=== PATIENT | female | born 1990 | race Caucasian/White ===

== ENCOUNTER 2018-04-06 04:38 | Emergency (ER) | payer OTHER ==
[2018-04-06] MEDS ORDERED: Ketorolac INJ* 60 MG/2 ML VIAL IM ONE (05:07)
[2018-04-06] MEDS ORDERED: Cyclobenzaprine TAB* 10 MG PO ONE (05:07)
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
[2018-04-06 06:17] VITALS: BP 112/65
== END 2018-04-06 06:16 | disposition home or self-care (01) ==
LOC: ED 04:38
DX: M54.5 Low back pain (principal); Z88.0 Allergy status to penicillin
CPT/HCPCS: 96372; 99282; A9270-GY; J1885

== ENCOUNTER → 2018-06-24 | Emergency (ER) | payer MEDICAID, OTHER ==
[~2018-06-24] MED LIST: Levofloxacin TAB* 500 MG PO ONE; Lidocaine 1%* 5 ML VIAL INJ ONE; cefTRIAXone VIAL(*) 250 MG VIAL IM ONE
[2018-06-24 23:49] LABS: Urine Appearance Cloudy; Urine Bacteria Absent (Absent); Urine Bilirubin Negative (Negative); Urine Blood 2+ (Negative); Urine Color Amber; Urine Glucose Negative (Negative); Urine Ketones Negative (Negative); Urine Nitrite Negative (Negative); Urine Protein 1+(30 mg/dL) (Negative); Urine Red Blood Cell 3+(>10/hpf) (Absent); Urine Specific Gravity 1.028 (1.010-1.030); Urine Squamous Epithelial Cell Present (Absent); Urine Urobilinogen Negative (Negative); Urine White Blood Cell 3+(>20/hpf) (Absent)
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
[2018-06-24 23:54] LABS: Influenza A Molecular POSITIVE (Negative)
[2018-06-25 00:28] VITALS: BP 111/66
[2018-06-25 11:33] LABS: Neisseria gonorrhoeae (GC) RNA Negative (Negative)
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
== END | disposition home or self-care (01) ==
LOC: ED 23:01
DX: N39.0 Urinary tract infection, site not specified (principal); N89.8 Other specified noninflammatory disorders of vagina; J11.1 Influenza due to unidentified influenza virus with other respiratory manifestations; R50.9 Fever, unspecified; R05 Cough; R10.9 Unspecified abdominal pain; R30.0 Dysuria; F17.210 Nicotine dependence, cigarettes, uncomplicated
CPT/HCPCS: 81003; 81015; 87086; 87480; 87491; 87510; 87591; 87660; 96372; 96374; 99282; J0696